=== PATIENT | female | born 1990 | race Caucasian/White ===

== ENCOUNTER 2017-08-17 12:28 | Day surgery (SDC) | payer BC ==
--- NOTE | 2017-08-17 13:48 | Operative Note ---
Colonoscopy ([facility]) Procedure date: 08/17/17 Date of : [birth year] Procedure:Colonoscopy Colonoscopy with cold biopsies Indications: Ms. Her is a 27-year-old female with RIGHT upper quadrant abdominal pain and diarrhea. The RIGHT upper quadrant abdominal pain can radiate around and into the back. She has had this since March or April 2017. She had an ultrasound of the gallbladder that was unremarkable. She also had a HIDA scan that showed a 68 percent ejection fraction and this was normal. The patient also had blood work that was normal including liver chemistries. Her bowel movements are very yellow with mucus. She has been treated with Xifaxan and Bentyl with no improvement. She did have an elevated C-reactive protein of 2.4. The patient reports constant nausea, bloating and gassiness. She has occasional early satiety. She reports no heartburn, reflux or dysphagia. She has no belching. She can awaken with the pain. The patient reports no melena, bright red rectal bleeding, hematochezia, weight loss or fever. Her mother has ulcerative proctitis. Performing Provider: Rob Julio MD Referrring Provider: Anita Dale PA-C Sedation: Fentanyl 200 mg IV/Versed 10 mg IV Procedure: Prior to the procedure, a history and physical exam was performed, and patient medications and allergies were reviewed. The risks and benefits of the procedure and the sedation options and risks were discussed with the patient. All questions were answered and informed consent was obtained. Patient identification and proposed procedure were verified by the physician and the nurse. The patient was placed in a left lateral decubitus position. Throughout the procedure, the patient's blood pressure, pulse, and oxygen saturations were monitored continuously. Findings: On digital rectal examination there was normal rectal tone. There were no external hemorrhoids. The colonoscope was introduced through the anal canal to the rectum and advanced to the cecum. The ileocecal valve and appendiceal orifice were identified. The scope was advanced a short distance into the ileum which appeared grossly normal. The scope was then withdrawn into the colon. The cecum, ascending, transverse, descending, sigmoid and rectum were grossly normal. Random cold biopsies were taken from the RIGHT colon to rule out microscopic/lymphocytic colitis. There was some angulation at the hepatic flexure suggestive of hepatic flexure syndrome. There were no mucosal abnormalities identified. Upon retroflexion within the rectum there were grade 1 internal hemorrhoids. Impressions: 1. Normal colonoscopy with intubation of the terminal ileum 2. 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 Grade 1 internal hemorrhoids Recommendations: I do feel that the patient has IBS with visceral sensitivity and hepatic flexure syndrome causing her RIGHT upper abdominal pain. I would encourage dietary measures, fiber bulk and probiotic. I'm also going to treat the visceral sensitivity. If she fails to improve within 8 weeks, we may consider ERCP to evaluate for sphincter of Oddi dysfunction. Complications: None EBL (ml): 0 at 1348
[2017-08-17 15:31] VITALS: BP 118/69
== END 2017-08-17 14:20 | disposition home or self-care (01) ==
LOC: SDC 12:28
PROVIDERS: Internal Medicine Gastroenterology
PROC: 0DBK8ZX Excision of Ascending Colon, Via Natural or Artificial Opening Endoscopic, Diagnostic (ICD-10-PCS; principal; 2017-08-17 13:30)
DX: K76.89 Other specified diseases of liver (principal); K64.0 First degree hemorrhoids